=== PATIENT | female | born 1995 | race Caucasian/White ===

== ENCOUNTER 2018-02-08 01:28 | Emergency (ER) | payer MEDICAID ==
[2018-02-08 01:42] VITALS: BP 110/90
[2018-02-08] MEDS ORDERED: CLINDAMYCIN 150 MG CAP PO ONE (02:09)
[2018-02-08] MEDS ORDERED: CLINDAMYCIN 150MG PREPACK#6 BTL TAKEHOME ONE (02:09)
--- NOTE | 2018-02-08 02:10 | EDPHY ---
H & P Stated Complaint: Dental pain, saw dentist Saturday-'panic attack and went unresponsive'! Time Seen by Provider: 02/08/18 01:43 HPI/ROS: HPI The patient presents with dental pain which has been present for the last 4 days though getting progressively worse. Four days ago the patient underwent fillings for multiple cavities on the right side of her mouth. She was discharged with instructions for ibuprofen and Tylenol as well as a mouthwash which she is using. She says the pain is worse at night especially before going to bed and has been increasing over the last several nights. The pain is dull and aching, it does not radiate. She is able to open her mouth and swallow without any difficulty. She does not have any fever. She has plans for root canal with her dentist. REVIEW OF SYSTEMS 10 systems were reviewed and negative with the exception of the elements mentioned in the history of present illness. PMHx: Reported history of autism, [facility] Hx: Marijuana use PHYSICAL General Appearance: Alert, no distress Eyes: Pupils equal and round no pallor or injection ENT, Mouth: Poor dentition of right lower molars with slight erythema of gums without any areas of fluctuance, no trismus, Mucous membranes moist Respiratory: Breathing comfortably Neurological: A&O, moves all extremities Skin: Warm and dry, no rashes Musculoskeletal: Neck is supple non tender Extremities: symmetrical, full range of motion Psychiatric: Patient is oriented X 3, there is no agitation Source: Patient Exam Limitations: No limitations - Personal History Current Tetanus/Diphtheria Vaccine: Yes Current Tetanus Diphtheria and Acellular Pertussis (TDAP): Yes Tetanus Vaccine Date: 2014 - Medical/Surgical History Hx Asthma: No Hx Chronic Respiratory Disease: No Hx Diabetes: No Hx Cardiac Disease: No Hx Renal Disease: No Hx Cirrhosis: No Hx Alcoholism: No Hx HIV/AIDS: No Hx Splenectomy or Spleen Trauma: No Other PMH: D+C WHEN SHE WAS 14, AUTISM, MARIJUANA USE. - Social History Smoking Status: Current some day smoker Constitutional: Initial Vital Signs Temperature (C) 36.6 C 02/08/18 01:38 Heart Rate 66 02/08/18 01:38 Respiratory Rate 18 02/08/18 01:38 Blood Pressure 110/90 H 02/08/18 01:38 O2 Sat (%) 100 02/08/18 01:38 O2 Delivery Mode Room Air Allergies/Adverse Reactions: valentina flavor Allergy (Severe, Verified 02/08/18 01:36) Anaphylaxis VALENTINA Allergy (Severe, Uncoded 02/08/18 01:36) Anaphylaxis Home Medications: Medication Instructions Recorded Clindamycin HCl [Clindamycin] 300 mg PO TID 7 Days cap 02/08/18 Medical Decision Making Differential Diagnosis: 22-year-old female with history of autism presents from home with several days of dental pain after having cavities filled at her dentist. Her pain is localized to her cavities. She does not have any trismus ir areas of fluctuance. She may have mild dental infection verses postprocedural pain. I have recommended that she continue taking ibuprofen and Tylenol around the clock. I have recommended that she [facility] I will give her a course of clindamycin. Departure - Departure Disposition: Home, Routine, Self-Care Condition: Good Instructions: Clindamycin (By mouth), Toothache (ED) Additional Instructions: Please follow-up with the dentist in the next few days. Return to the emergency department if your worse in any way. Referrals: [facility] [[facility]] - As per Instructions Prescriptions: Clindamycin HCl [Clindamycin] 300 mg PO TID 7 Days cap
== END 2018-02-08 02:22 | disposition home or self-care (01) ==
DX: K08.89 Other specified disorders of teeth and supporting structures (principal); F17.200 Nicotine dependence, unspecified, uncomplicated; Z98.818 Other dental procedure status

== ENCOUNTER 2018-03-18 11:37 | Emergency (ER) | payer MEDICAID ==
--- NOTE | 2018-03-18 12:18 | EDPHY ---
H & P Smoking Status: Current some day smoker Time Seen by Provider: 03/18/18 11:55 HPI/ROS: CLINICAL IMPRESSION: Bronchitis ASSESSMENT/PLAN: 22-year-old female presents to the emergency department with 3 weeks of URI symptoms with cough. No associated chest pain, shortness of breath, hypoxia, respiratory distress or history of underlying asthma or pulmonary disease. Vital signs stable. Lungs clear. Chest x-ray without indication of underlying pneumonia or acute cardiopulmonary abnormality. Patient received an albuterol neb treatment with improvement in her symptoms. No clinical indication of acute sinusitis, otitis media, exudative tonsillitis, or bacterial lower respiratory disease. Recommend supportive care, albuterol inhaler and cough suppressant prescribed. Patient also complaining of pelvic cramping but did not wish to have this evaluated today and refused test. Encouraged PCP follow-up, warning signs return to ED sooner alignment discharge. DIFFERENTIAL DX: Differential diagnosis includes but not limited to bronchitis, pneumonia, reactive airway disease, viral URI ]ED PROCEDURES:] Please see x-ray results below ED COURSE: Patient reassessed after albuterol neb and reports improved breathing CHIEF COMPLAINT: Cough x3 weeks, pelvic cramping HPI: 22-year-old female presents to the emergency department with URI symptoms x3 weeks associated with cough. She states cough is productive mostly in the morning with a mixture of yellow and white phlegm. No associated chest pain or shortness of breath. No underlying asthma or history of pulmonary disease. No reported fever or chills. She states she has some back pain and abdominal cramping which she thinks is due to coughing. No dysuria, flank pain, or abnormal vaginal discharge. She does not believe she is but is not sure. She does not want a test today. She has been trying over-the- counter remedies for her symptoms PAST MEDICAL HISTORY: no reported Pertinent Past Surgical History: non reported Family History: Noncontributory Social History: Nonsmoker ROS: A full 10 point review of systems was negative except for those mentioned in HPI. PHYSICAL EXAM: General Appearance: Alert, oriented, appropriate, cooperative, NAD, well hydrated, non-toxic appearing, VSS, no hypoxia, or respiratory distress HEENT: TMs are clear bilaterally no perforation or FB, no injection, no evidence of serous or mucopurulent otitis. Oropharynx clear is no erythema or exudates, no tonsillar hypertrophy or asymmetry. Dentition without abnormality. Eyes: PERRLA, no acute vision change, nystagmus, swelling, discharge, pain or photosensitivity. Conjunctiva pink, no pallor or injection Neck: Supple, nontender, no lymphadenopathy, no midline pain, FROM, no meningismus. Respiratory: There are no retractions, lungs are clear to auscultation. Cardiac: Regular rate and rhythm, no murmurs or gallops. Skin: Warm, dry, no rashes, no nodules on palpation. MEDICAL DECISION MAKING: Patient was seen independently. Secondary supervising physician at time of evaluation was Dr. Frey . Diagnosis: Viral bronchitis . New, requires workup Summary: See Assessment and Plan for summary of ED visit Patient Progress: Stable, improved. (Edvin Colin) Constitutional: Initial Vital Signs Temperature (C) 36.6 C 03/18/18 11:39 Heart Rate 80 03/18/18 11:39 Respiratory Rate 20 03/18/18 11:39 Blood Pressure 118/91 H 03/18/18 11:39 O2 Sat (%) 95 03/18/18 11:39 O2 Delivery Mode Room Air Allergies/Adverse Reactions: valentina flavor Allergy (Severe, Verified 03/18/18 11:43) Anaphylaxis VALENTINA Allergy (Severe, Uncoded 03/18/18 11:43) Anaphylaxis Home Medications: Medication Instructions Recorded Clindamycin HCl [Clindamycin] 300 mg PO TID 7 Days cap 02/08/18 Albuterol Hfa Anes Only [Proair 2 puffs IH QID #1 mdi 03/18/18 Hfa Icu (*)] HYDROcodone/CHLORPHEN P-STIREX 5 ml PO Q12 PRN #50 [id number].[email or web address] 03/18/18 [Tussionex Pennkinetic Susp] MDM/Departure - MDM Medications Given: Discontinued Medications Albuterol (Proventil Neb) 3 ml IH EDNOW ONE Stop: 03/18/18 12:20 Last Admin: 03/18/18 12:32 Dose: 3 ml ED Course/Re-evaluation: I did not see this patient while she was in the emergency department. However her care was discussed with the PA while the patient was in the department. I agree with treatment plan and management (Raul Frey) - Depart Disposition: Home, Routine, Self-Care Clinical Impression: Bronchitis Condition: Good Instructions: Acute Bronchitis (ED) Additional Instructions: DISCHARGE INSTRUCTIONS FROM YOUR DOCTOR Thank you for visiting our emergency department today. Please keep in mind that discharge from the emergency department does not mean that there is nothing wrong - it simply means that we have not identified an emergency condition that requires further evaluation or treatment in the hospital. You should always plan to follow up with primary care for re-evaluation of your condition in the next 2-3 days. If you have been referred to a specialist, please call as soon as possible (today or tomorrow) to schedule your follow up appointment at the appropriate time. X-ray did not show evidence of pneumonia or bacterial infection. You likely have bronchitis which is viral. This can cause a cough for several weeks. We gave you a prescription for a an albuterol inhaler to use with a spacer every 4 hr as needed. Please follow up with a primary care provider this week. Return to the emergency department for worsening cough, chest pain, fevers or chills, or any other concern. People present with illnesses and injuries in different ways, and it is always possible that we have missed something. You may always return for re-evaluation if symptoms worsen or if they are not improving or if you develop new/different symptoms. Again, thank you for choosing our emergency department. We hope that you feel better. Prescriptions: Albuterol Hfa Anes Only [Proair Hfa Icu (*)] 2 puffs IH QID #1 mdi HYDROcodone/CHLORPHEN P-STIREX [Tussionex Pennkinetic Susp] 5 ml PO Q12 PRN #50 [id number].[email or web address] PRN Reason: Cough, Moderate Referrals: NONE *PRIMARY CARE P,. [Primary Care Provider] - As per Instructions Jeni Jane MD [[facility] Primary Care Provider] - 1-2 days without fail
[2018-03-18] MEDS ORDERED: ALBUTEROL 3 ML DEYVIAL IH ONE (12:19)
[2018-03-18 13:06] VITALS: BP 114/74
== END 2018-03-18 13:06 | disposition home or self-care (01) ==
DX: J20.9 Acute bronchitis, unspecified (principal)
CPT/HCPCS: J7613

== ENCOUNTER 2018-04-11 00:13 | Emergency (ER) | payer MEDICAID ==
[2018-04-11] MEDS ORDERED: ONDANSETRON 4 MG/2 ML VIAL IVP ONE (00:48)
[2018-04-11] MEDS ORDERED: NS 1,000 ML IV ONE (00:48)
[2018-04-11 01:25] LABS: PLATELET COUNT 229 10^3/uL (150-400)
--- NOTE | 2018-04-11 01:25 | EDPHY ---
H & P Stated Complaint: Nausea, abd cramping, concerned for or ovarian cyst Time Seen by Provider: 04/11/18 00:38 HPI/ROS: Chief Complaint: Nausea, abdominal pain HPI: 22-year-old who does not believe she is currently is presenting complaining of 2-3 days of intermittent nausea which is associated with some low pelvic cramping and back spasms. Patient states that the pain and cramping is not constant. She has a wave of nausea and feels a low tightening in her lower pelvis and her back. Last menstrual period was 33 days ago. No urinary urgency or frequency. No vomiting or diarrhea or constipation. No vaginal discharge or bleeding. She did take a test yesterday morning which was negative. She is currently without pain. Patient states the ways come about every hour and last for only a few minutes. She has not taken any medications for these. ROS: 10 systems were reviewed and were negative except those elements noted in the HPI. PMH: Denies Social History: No smoking Family History: non-contributory Physical Exam: Gen: Awake, Alert, No Distress HEENT: Nose: no rhinorrhea Eyes: PERRLA, EOMI Mouth: Moist mucosa Neck: Supple, no JVD Chest: nontender, lungs clear to auscultation Heart: S1, S2 normal, no murmur Abd: Soft, non-tender, no guarding Back: no CVA tenderness, no midline tenderness Ext: no edema, non-tender Skin: no rash Neuro: CN II-XII intact, Sensation grossly intact, Strength 5/5 in bilateral upper and lower extremities - Personal History LMP (Females 10-55): Irregular Current Tetanus Diphtheria and Acellular Pertussis (TDAP): Yes Tetanus Vaccine Date: 2014 - Medical/Surgical History Hx Asthma: No Hx Chronic Respiratory Disease: No Hx Diabetes: No Hx Cardiac Disease: No Hx Renal Disease: No Hx Cirrhosis: No Hx Alcoholism: No Hx HIV/AIDS: No Hx Splenectomy or Spleen Trauma: No Other PMH: D+C WHEN SHE WAS 14, AUTISM, MARIJUANA USE. - Social History Smoking Status: Current some day smoker Constitutional: Initial Vital Signs Temperature (C) 36.7 C 04/11/18 00:14 Heart Rate 86 04/11/18 00:14 Respiratory Rate 17 04/11/18 00:14 Blood Pressure 102/67 04/11/18 00:14 O2 Sat (%) 96 04/11/18 00:14 O2 Delivery Mode Room Air Allergies/Adverse Reactions: valentina flavor Allergy (Severe, Verified 04/11/18 00:14) Anaphylaxis VALENTINA Allergy (Severe, Uncoded 04/11/18 00:14) Anaphylaxis Home Medications: Medication Instructions Recorded Clindamycin HCl [Clindamycin] 300 mg PO TID 7 Days cap 02/08/18 Albuterol Hfa Anes Only [Proair 2 puffs IH QID #1 mdi 03/18/18 Hfa Icu (*)] HYDROcodone/CHLORPHEN P-STIREX 5 ml PO Q12 PRN #50 [id number].er.[id number] 03/18/18 [Tussionex Pennkinetic Susp] Medical Decision Making ED Course/Re-evaluation: Patient is not . Chemistry and CBC are unremarkable. Patient has not been able to give a urine sample. She does not wish to stay any longer to give me 1. She does not believe she has UTI. I have explained that it is possible that she has an occult infection and I can't rule this out without a urine sample. She is declining at this time would prefer to go home. I have encouraged her to follow up with primary care physician. Her abdomen is soft and benign. Certainly no evidence of acute surgical or infectious emergency. Will discharge with oral nausea medication, return for any concerns. - Data Points Laboratory Results: Laboratory Results 04/11/18 00:40 04/11/18 00:40 04/11/18 04/11/18 04/11/18 00:40 00:40 00:40 WBC 7.95 10^3/uL 10^3/uL (3.80-9.50) RBC 4.98 10^6/uL 10^6/uL (4.18-5.33) Hgb 14.4 g/dL g/dL (12.6-16.3) Hct 42.8 % % (38.0-47.0) MCV 85.9 fL fL (81.5-99.8) MCH 28.9 pg pg (27.9-34.1) MCHC 33.6 g/dL g/dL (32.4-36.7) RDW 12.7 % % (11.5-15.2) Plt Count 229 10^3/uL 10^3/uL (150-400) MPV 9.6 fL fL (8.7-11.7) Neut % (Auto) 46.5 % % (39.3-74.2) Lymph % (Auto) 46.0 % H % (15.0-45.0) [place] % (Auto) 5.7 % % (4.5-13.0) Eos % (Auto) 0.9 % % (0.6-7.6) Baso % (Auto) 0.6 % % (0.3-1.7) Nucleat RBC Rel Count 0.0 % % (0.0-0.2) Absolute Neuts (auto) 3.70 10^3/uL 10^3/uL (1.70-6.50) Absolute Lymphs (auto) 3.66 10^3/uL H 10^3/uL (1.00-3.00) Absolute Monos (auto) 0.45 10^3/uL 10^3/uL (0.30-0.80) Absolute Eos (auto) 0.07 10^3/uL 10^3/uL (0.03-0.40) Absolute Basos (auto) 0.05 10^3/uL 10^3/uL (0.02-0.10) Absolute Nucleated RBC 0.00 10^3/uL 10^3/uL (0-0.01) Immature Gran % 0.3 % % (0.0-1.1) Immature Gran # 0.02 10^3/uL 10^3/uL (0.00-0.10) Sodium 136 mEq/L mEq/L (135-145) Potassium 3.8 mEq/L mEq/L (3.5-5.2) Chloride 105 mEq/L mEq/L (97-110) Carbon Dioxide 23 mEq/l mEq/l (22-31) Anion Gap 8 mEq/L mEq/L (6-14) BUN 18 mg/dL mg/dL (7-23) Creatinine 0.6 mg/dL mg/dL (0.6-1.0) Estimated GFR > 60 Glucose 91 mg/dL mg/dL (70-100) Calcium 9.2 mg/dL mg/dL (8.5-10.4) Beta HCG, Qual NEGATIVE Medications Given: Discontinued Medications Sodium Chloride (Ns) 1,000 mls @ 0 mls/hr IV ONCE ONE; Wide Open PRN Reason: Protocol Stop: 04/11/18 00:49 Last Admin: 04/11/18 00:56 Dose: 1,000 mls Ondansetron HCl (Zofran) 4 mg IVP EDNOW ONE Stop: 04/11/18 00:49 Last Admin: 04/11/18 00:50 Dose: Not Given Departure - Departure Disposition: Home, Routine, Self-Care Clinical Impression: Nausea, Abdominal pain Condition: Good Instructions: Acute Nausea and Vomiting (ED), Abdominal Pain (ED), Ondansetron (By mouth) Additional Instructions: Follow up with primary care physician in 3-4 days if symptoms are not improving. Referrals: NONE *PRIMARY CARE P,. [Primary Care Provider] - As per Instructions
[2018-04-11] MEDS ORDERED: ONDANSETRON 4MG PREPACK#2 BTL TAKEHOME ONE (01:50)
[2018-04-11 02:06] VITALS: BP 128/78
== END 2018-04-11 02:07 | disposition home or self-care (01) ==
DX: R11.0 Nausea (principal); R10.2 Pelvic and perineal pain; E86.9 Volume depletion, unspecified
CPT/HCPCS: 96374

== ENCOUNTER 2018-05-18 10:53 | Emergency (ER) | payer MEDICAID ==
--- NOTE | 2018-05-18 11:12 | EDPHY ---
H & P Stated Complaint: 6 weeks , abd pain - Personal History LMP (Females 10-55): Current Tetanus/Diphtheria Vaccine: Yes Current Tetanus Diphtheria and Acellular Pertussis (TDAP): Yes Tetanus Vaccine Date: 2014 - Medical/Surgical History Hx Asthma: No Hx Chronic Respiratory Disease: No Hx Diabetes: No Hx Cardiac Disease: No Hx Renal Disease: No Hx Cirrhosis: No Hx Alcoholism: No Hx HIV/AIDS: No Hx Splenectomy or Spleen Trauma: No Other PMH: D+C WHEN SHE WAS 14, AUTISM, MARIJUANA USE. - Social History Smoking Status: Former smoker Time Seen by Provider: 05/18/18 11:00 HPI/ROS: CHIEF COMPLAINT: Abdominal pain, HISTORY OF PRESENT ILLNESS: 23-year-old female, , currently approximately 6 weeks , positive home test 5 days ago complaining of 5 days mild left lower quadrant pain. No vaginal bleeding or discharge. No urinary abnormality. No chest pain. No dyspnea. No trauma. No dyspareunia. REVIEW OF SYSTEMS: 10 systems reviewed and negative with the exception of the elements mentioned in the history of present illness PAST MEDICAL & SURGICAL HISTORY: SAB 2 SOCIAL HISTORY: PHYSICAL EXAM (Prior to examination, patient consented to physical exam, hands were washed and my usual and customary physical exam procedures followed) 1) GENERAL: Well-developed, well-nourished, alert and oriented. Appears to be in no acute distress. Appears well overall 2) HEAD: Normocephalic, atraumatic 3) HEENT: Pupils equal, round, reactive to light bilaterally. Sclera anicteric. 4) NECK: Full range of motion, no meningeal signs. 5) LUNGS: Clear auscultation bilaterally, no wheezes, no rhonchi, no retractions. 6) HEART: Regular rate and rhythm, no murmur, no heave, no gallop. 7) ABDOMEN: No guarding, no rebound, mild tenderness to palpation left lower quadrant, negative McBurney's, negative Abraham's, negative peritoneal sign, 8) MUSCULOSKELETAL: Moving all extremities, no focal areas of tenderness, no obvious trauma. No peripheral edema or discoloration. 9) BACK: No CVA tenderness, no midline vertebral tenderness, no fluctuance, no step-off, no obvious trauma, no visual or palpable abnormality. 10) SKIN: No rash, no petechiae. 11) Psychiatric: Patient is oriented X 3, there is no agitation. DIFFERENTIAL DIAGNOSIS: My differential diagnosis includes, but is not limited to, ovarian cyst, diverticulitis, ovarian torsion, ectopic , gastritis and urinary tract infection. The patient understands that this diagnosis is provisional and can never be 100% accurate. This is a partial list of diagnoses considered. These considerations are based on history, physical exam, past history and reassessment. (Terence Bauer) Constitutional: Initial Vital Signs Temperature (C) 37.4 C 05/18/18 10:57 Heart Rate 81 05/18/18 10:57 Respiratory Rate 16 05/18/18 10:57 Blood Pressure 116/72 05/18/18 10:57 O2 Sat (%) 96 05/18/18 10:57 O2 Delivery Mode Room Air Allergies/Adverse Reactions: valentina flavor Allergy (Severe, Verified 05/18/18 10:56) Anaphylaxis VALENTINA Allergy (Severe, Uncoded 05/18/18 10:56) Anaphylaxis Home Medications: Medication Instructions Recorded Cephalexin [Keflex] 500 mg PO BID 7 Days cap 05/18/18 Medical Decision Making ED Course/Re-evaluation: Care of patient under supervision of primary Supervising physician Dr Jaeger with whom I discussed case. 12:45 p.m.: Re-evaluation. Discussed with patient her ultrasound results, informed that although no IUP is seen, ectopic is not ruled out. At this time I think the patient can be discharged. Today is Saturday. She has an appoint with her OBGYN tomorrow at the [facility]. I recommend she keep this appointment. She is also noted to have bacteriuria (Terence Bauer) Other Provider: PHYSICIAN DOCUMENTATION: The patient was evaluated and managed by the Physician Fuse Assembler. My co- signature indicates that I have reviewed this chart and I agree with the findings and plan of care as documented. I am the secondary supervising physician. (Javier Jaeger) - Data Points Laboratory Results: Laboratory Results 05/18/18 11:20 05/18/18 11:20 05/18/18 05/18/18 05/18/18 11:20 11:20 11:00 WBC 7.34 10^3/uL 10^3/uL (3.80-9.50) RBC 5.27 10^6/uL 10^6/uL (4.18-5.33) Hgb 15.6 g/dL g/dL (12.6-16.3) Hct 45.3 % % (38.0-47.0) MCV 86.0 fL fL (81.5-99.8) MCH 29.6 pg pg (27.9-34.1) MCHC 34.4 g/dL g/dL (32.4-36.7) RDW 12.2 % % (11.5-15.2) Plt Count 239 10^3/uL 10^3/uL (150-400) MPV 9.2 fL fL (8.7-11.7) Neut % (Auto) 68.1 % % (39.3-74.2) Lymph % (Auto) 25.2 % % (15.0-45.0) [place] % (Auto) 5.9 % % (4.5-13.0) Eos % (Auto) 0.4 % L % (0.6-7.6) Baso % (Auto) 0.3 % % (0.3-1.7) Nucleat RBC Rel Count 0.0 % % (0.0-0.2) Absolute Neuts (auto) 5.00 10^3/uL 10^3/uL (1.70-6.50) Absolute Lymphs (auto) 1.85 10^3/uL 10^3/uL (1.00-3.00) Absolute Monos (auto) 0.43 10^3/uL 10^3/uL (0.30-0.80) Absolute Eos (auto) 0.03 10^3/uL 10^3/uL (0.03-0.40) Absolute Basos (auto) 0.02 10^3/uL 10^3/uL (0.02-0.10) Absolute Nucleated RBC 0.00 10^3/uL 10^3/uL (0-0.01) Immature Gran % 0.1 % % (0.0-1.1) Immature Gran # 0.01 10^3/uL 10^3/uL (0.00-0.10) Sodium 136 mEq/L mEq/L (135-145) Potassium 3.9 mEq/L mEq/L (3.5-5.2) Chloride 107 mEq/L mEq/L (97-110) Carbon Dioxide 21 mEq/l L mEq/l (22-31) Anion Gap 8 mEq/L mEq/L (6-14) BUN 15 mg/dL mg/dL (7-23) Creatinine 0.6 mg/dL mg/dL (0.6-1.0) Estimated GFR > 60 Glucose 93 mg/dL mg/dL (70-100) Calcium 9.5 mg/dL mg/dL (8.5-10.4) Beta HCG, Quant 1297.00 mIU/mL H mIU/mL (0.00-4.83) Urine Color YELLOW Urine Appearance HAZY Urine pH 5.0 (5.0-7.5) Ur Specific [place] 1.026 (1.002-1.030) Urine Protein NEGATIVE (NEGATIVE) Urine Ketones NEGATIVE (NEGATIVE) Urine Blood NEGATIVE (NEGATIVE) Urine Nitrate NEGATIVE (NEGATIVE) Urine Bilirubin NEGATIVE (NEGATIVE) Urine Urobilinogen NEGATIVE EU EU (0.2-1.0) Ur Leukocyte Esterase NEGATIVE (NEGATIVE) Urine RBC 1-3 /hpf /hpf (0-3) Urine WBC 3-5 /hpf H /hpf (0-3) Ur Epithelial Cells 2+ /lpf H /lpf (NONE-1+) Urine Bacteria TRACE /hpf H /hpf (NONE SEEN) Urine Mucus TRACE /lpf /lpf (NONE-1+) Urine Glucose NEGATIVE (NEGATIVE) Departure - Departure Disposition: Home, Routine, Self-Care Clinical Impression: Asymptomatic bacteriuria Abdominal pain during Qualifiers: Trimester: first trimester Qualified Code(s): O26.891 - Other specified related conditions, first trimester Condition: Good Instructions: Acute Abdominal Pain (ED), Urinary Tract Infection in ( ED) Additional Instructions: Return to the ER or seek immediate medical attention if you develop vaginal bleeding, worse abdominal pain, back or flank pain or any other symptoms that concern you. Referrals: [facility] [place] [Outside] - 1 day without fail (Keep your appointment with your OBGYN at [facility] tomorrow) Prescriptions: Cephalexin [Keflex] 500 mg PO BID 7 Days cap
[2018-05-18 11:34] LABS: PLATELET COUNT 239 10^3/uL (150-400)
[2018-05-18 13:32] VITALS: BP 97/76
== END 2018-05-18 13:33 | disposition home or self-care (01) ==
DX: O26.891 Other specified pregnancy related conditions, first trimester (principal); R10.9 Unspecified abdominal pain; Z3A.01 Less than 8 weeks gestation of pregnancy